=== PATIENT | male | born 1995 | race Caucasian/White ===

== ENCOUNTER → 2019-01-08 | Outpatient (CLI) | payer OTHER ==
[~2019-01-08] MED LIST: AMOX1TAB61 PO; OXYC1TAB22 PO; SULF1TAB24 PO
--- NOTE | 2019-01-08 16:41 | RAD ---
SHOULDER 2+V LEFT History: Left shoulder pain. Technique: 3 views left shoulder. Comparison: None. Findings: Mild widening of the left acromioclavicular joint. No widening of the left coracoclavicular interval. Normal alignment of the left glenohumeral. No fracture. Soft tissues unremarkable. Impression: 1. Mild widening of the left acromioclavicular joint, indicating grade 1 injury. Electronically signed by: Claudio Sharma DO (01/08/2019 4:39 PM) [id number]
== END | disposition home or self-care (01) ==
LOC: PMG 16:17
PROVIDERS: ATTEND Physician Assistant
DX: S49.92XA Unspecified injury of left shoulder and upper arm, initial encounter (principal); Y04.0XXA Assault by unarmed brawl or fight, initial encounter; Y93.89 Activity, other specified; Y92.89 Other specified places as the place of occurrence of the external cause; Y99.8 Other external cause status
CPT/HCPCS: 73030